=== PATIENT | female | born 1985 | race Caucasian/White ===

== ENCOUNTER 2025-01-20 10:06 | Emergency (ER) | payer SELFPAY ==
[2025-01-20] MEDS: Acetaminophen/HYDROcodone 325-5 MG Tab PO ONE (11:21)
== END 2025-01-20 11:41 | disposition home or self-care (01) ==
LOC: DL.ED 10:06
DX: S93.401A Sprain of unspecified ligament of right ankle, initial encounter (principal); W10.8XXA Fall (on) (from) other stairs and steps, initial encounter; Y93.89 Activity, other specified
CPT/HCPCS: 73610-RT; 99282; 99283; A9270-GY